=== PATIENT | male | born 1975 ===

== ENCOUNTER 2019-03-26 11:17 | Outpatient (REF) | payer OTHER, SELFPAY ==
[2019-03-26 21:43] LABS: ALT 31 U/L (16-63); AST 40 U/L (15-37); Albumin 4.2 g/dL (3.4-5.0); Alkaline Phosphatase 88 U/L (46-116); Anion Gap 6.6 mmol/L (3-11); BUN 15 mg/dL (7-18); Bilirubin, Total 0.9 mg/dL (0.2-1.0); CO2 31.4 mmol/L (21.0-32.0); CREATININE 0.85 mg/dL (0.70-1.30); Calculated LDL 120 mg/dL; Chloride 105 mmol/L (98-107); Cholesterol 194 mg/dL (50-200); Glucose 87 mg/dL (70-100); HDL Cholesterol 60 mg/dL (40-60); Potassium 4.6 mmol/L (3.5-5.1); Sodium 143 mmol/L (136-145); Total Protein 6.9 g/dL (6.4-8.2); Triglyceride 71 mg/dL (30-150)
== END 2019-03-26 11:37 ==
LOC: NCHCN 11:17
PROVIDERS: PCP Internal Medicine; Visit Provider Internal Medicine
DX: G47.33 Obstructive sleep apnea (adult) (pediatric) (principal); L60.9 Nail disorder, unspecified; R94.5 Abnormal results of liver function studies; Z82.49 Family history of ischemic heart disease and other diseases of the circulatory system
CPT/HCPCS: 80053; 80061